=== PATIENT | male | born 1965 | race Caucasian/White ===

== ENCOUNTER 2022-12-13 07:18 | Emergency (ER) | payer OTHER ==
[2022-12-13] MEDS ORDERED: Proparacaine 0.5% Ophth Soln 15 ML Bottle EYELF ONE (07:35)
[2022-12-13] MEDS ORDERED: Fluorescein 1 MG Ophth Strip EYELF ONE (07:35)
== END 2022-12-13 08:37 | disposition home or self-care (01) ==
LOC: JD.ED 07:18
DX: S05.02XA Injury of conjunctiva and corneal abrasion without foreign body, left eye, initial encounter (principal); W20.8XXA Other cause of strike by thrown, projected or falling object, initial encounter
CPT/HCPCS: 99282; 99283; J3490